=== PATIENT | female | born 1965 | race Caucasian/White ===

== ENCOUNTER → 2016-06-21 | Outpatient (CLI) | payer MEDICARE, BC ==
[~2016-06-21] MED LIST: AMBIEN10 MG PO; BACLOFEN10 M1 PO; CYANOCOBAL1000 MCG/1 IM; DULCOLAX100 MG PO; MELATONIN3 M1 PO; PERCOCET 7.5/321 TA1 PO; PRAVASTATIN20 MG PO; RESTORIL15 MG PO; ZANTAC150 MG PO
[2016-06-21 12:45] VITALS: BP 109/55
== END ==
LOC: AMSURD 12:15
DX: R07.9 Chest pain, unspecified (principal)

== ENCOUNTER → 2016-11-08 | Outpatient (CLI) | payer MEDICARE, BC ==
[2016-06-21 12:45] VITALS: BP 109/55
== END ==
LOC: RAD 12:00
DX: M54.16 Radiculopathy, lumbar region (principal); M54.14 Radiculopathy, thoracic region; M48.06 Spinal stenosis, lumbar region; M51.27 Other intervertebral disc displacement, lumbosacral region; M48.04 Spinal stenosis, thoracic region

== ENCOUNTER → 2016-11-10 | Outpatient (CLI) | payer MEDICARE, BC ==
[2016-06-21 12:45] VITALS: BP 109/55
== END ==
LOC: RAD 13:57
DX: R07.89 Other chest pain (principal); R22.2 Localized swelling, mass and lump, trunk

== ENCOUNTER → 2016-11-25 | Day surgery (SDC) | payer MEDICARE, BC ==
[2016-06-21 12:45] VITALS: BP 109/55
== END ==
LOC: MSO 13:03
DX: D13.2 Benign neoplasm of duodenum (principal); K21.0 Gastro-esophageal reflux disease with esophagitis; Z86.010 Personal history of colon polyps; G47.33 Obstructive sleep apnea (adult) (pediatric); R13.10 Dysphagia, unspecified
CPT/HCPCS: 00740; J7120

== ENCOUNTER → 2016-12-06 | Day surgery (SDC) | payer MEDICARE, BC ==
[2016-06-21 12:45] VITALS: BP 109/55
== END ==
LOC: MSO 07:06
DX: D17.1 Benign lipomatous neoplasm of skin and subcutaneous tissue of trunk (principal); G47.30 Sleep apnea, unspecified; M79.7 Fibromyalgia
CPT/HCPCS: A4649; J2405; J2550; J3010; J7120

== ENCOUNTER → 2016-12-20 | Outpatient (CLI) | payer MEDICARE, BC ==
[2016-06-21 12:45] VITALS: BP 109/55
== END ==
LOC: LAB 11:41
DX: R21 Rash and other nonspecific skin eruption (principal); A69.20 Lyme disease, unspecified

== ENCOUNTER → 2017-02-08 | Outpatient (CLI) | payer MEDICARE, BC ==
[2016-06-21 12:45] VITALS: BP 109/55
== END ==
LOC: LAB 15:12
DX: R51 Headache (principal); M43.6 Torticollis

== ENCOUNTER 2017-04-01 21:13 | Emergency (ER) | payer MEDICARE, BC ==
[~2017-04-01] VITALS: Ht 172.7 cm; Wt 84.6 kg
[2017-04-01] MEDS ORDERED: OMEPRAZOLE D/R20 MG PO (21:24)
[2017-04-01 23:01] LABS: CARBOXYHEMOGLOBIN (COHb) 0.5 %
[2017-04-01 23:33] VITALS: BP 120/78
== END 2017-04-01 23:28 | disposition home or self-care (01) ==
LOC: ED 21:13
PROVIDERS: Family Medicine
DX: T59.7X1A Toxic effect of carbon dioxide, accidental (unintentional), initial encounter (principal); R51 Headache; Y92.009 Unspecified place in unspecified non-institutional (private) residence as the place of occurrence of the external cause

== ENCOUNTER → 2018-03-13 | Outpatient (CLI) | payer MEDICARE, BC ==
[~2018-03-13] MED LIST changes: +OMEPRAZOLE D/R20 MG PO
[2018-03-13 09:39] LABS: EOS # 0.1 (0.04-0.40); EOS % 2.7 % (1.0-5.0); HEMATOCRIT 41.4 % (37.0-47.0); HEMOGLOBIN 13.5 g/dL (12.5-16.0); LYMPH# 2.4 (1.50-4.00); MEAN CELL VOLUME 88 fl (78-100); MEAN CORPUSCULAR HEMOGLOBIN 29 pg (27-31); MEAN CORPUSCULAR HGB CONC 33 g/dL (33-37); MEAN PLATELET VOLUME 9.6 fl (7.4-10.4); MONO # 0.3 (0.20-0.80); PLATELET COUNT 358 K/mm3 (130-400); RED BLOOD COUNT 4.69 M/mm3 (4.10-5.30); RED CELL DISTRIBUTION WIDTH 13.1 % (11.5-14.5); WHITE BLOOD COUNT 4.9 K/mm3 (4.8-10.8)
[2018-03-13 09:54] LABS: CALCIUM 9.3 mg/dL (8.4-10.2); POTASSIUM 4.3 mmol/L (3.6-5.0); TOTAL BILIRUBIN 0.9 mg/dL (0.2-1.3); TOTAL PROTEIN 6.9 g/dL (6.3-8.2)
[2018-03-13 11:50] LABS: ERYTHROCYTE SEDIMENTATION RATE 7 mm/hr (0-30)
== END ==
LOC: LAB 09:28
PROVIDERS: Internal Medicine
DX: E78.5 Hyperlipidemia, unspecified (principal); E53.8 Deficiency of other specified B group vitamins; K90.9 Intestinal malabsorption, unspecified; R20.2 Paresthesia of skin

== ENCOUNTER → 2018-03-15 | Outpatient (CLI) | payer MEDICARE, BC | LOC: MAMMO 13:37 | DX: Z12.31 Encounter for screening mammogram for malignant neoplasm of breast (principal) ==

== ENCOUNTER → 2018-06-02 | Outpatient (CLI) | payer MEDICARE, BC ==
[2018-06-02 08:58] LABS: ALBUMIN 3.9 g/dL (3.5-5.0); DIRECT BILIRUBIN 0.5 mg/dL (0.0-0.4); TOTAL PROTEIN 6.7 g/dL (6.3-8.2)
[2018-06-03 01:25] LABS: T3 TOTAL 82 ng/dL (87-178)
== END ==
LOC: LAB 08:24
PROVIDERS: Internal Medicine
DX: R94.6 Abnormal results of thyroid function studies (principal); E78.5 Hyperlipidemia, unspecified

== ENCOUNTER → 2018-10-09 | Outpatient (CLI) | payer MEDICARE, BC ==
[2018-06-13 16:50] VITALS: BP 129/80
[~2018-10-09] MED LIST changes: +NORCO 325 MG-51 TA1 PO
== END ==
LOC: RAD 15:09
DX: S43.51XA Sprain of right acromioclavicular joint, initial encounter (principal)

== ENCOUNTER → 2019-04-16 | Outpatient (CLI) | payer MEDICARE, BC ==
[2018-06-13 16:50] VITALS: BP 129/80
[2019-04-16 11:54] LABS: EOS # 0.1 (0.04-0.40); EOS % 1.5 % (1.0-5.0); HEMATOCRIT 43.3 % (37.0-47.0); HEMOGLOBIN 14.2 g/dL (12.5-16.0); LYMPH# 2.1 (1.50-4.00); MEAN CELL VOLUME 90 fl (78-100); MEAN CORPUSCULAR HEMOGLOBIN 29 pg (27-31); MEAN CORPUSCULAR HGB CONC 33 g/dL (33-37); MEAN PLATELET VOLUME 9.4 fl (7.4-10.4); MONO # 0.4 (0.20-0.80); NEU # 4.5 (1.40-6.50); PLATELET COUNT 374 K/mm3 (130-400); RED BLOOD COUNT 4.84 M/mm3 (4.10-5.30); RED CELL DISTRIBUTION WIDTH 12.9 % (11.5-14.5); WHITE BLOOD COUNT 7.2 K/mm3 (4.8-10.8)
[2019-04-16 12:14] LABS: ALBUMIN 4.2 g/dL (3.5-5.0); POTASSIUM 4.3 mmol/L (3.5-5.1)
[2019-04-16 12:15] LABS: CALCIUM 9.7 mg/dL (8.3-10.5)
[2019-04-16 12:17] LABS: TOTAL PROTEIN 7.5 g/dL (6.4-8.3)
[2019-04-16 12:19] LABS: TOTAL BILIRUBIN 0.5 mg/dL (0.2-1.2)
== END ==
LOC: LAB 11:41
PROVIDERS: Internal Medicine
DX: E78.5 Hyperlipidemia, unspecified (principal); E53.8 Deficiency of other specified B group vitamins; K90.9 Intestinal malabsorption, unspecified; R20.2 Paresthesia of skin

== ENCOUNTER → 2019-07-23 | Outpatient (CLI) | payer MEDICARE, BC ==
[2018-06-13 16:50] VITALS: BP 129/80
== END ==
LOC: LAB 16:48
DX: E78.5 Hyperlipidemia, unspecified (principal); E53.8 Deficiency of other specified B group vitamins; R20.2 Paresthesia of skin

== ENCOUNTER → 2019-11-12 | Outpatient (CLI) | payer MEDICARE, BC ==
[2018-06-13 16:50] VITALS: BP 129/80
[2019-11-12 08:53] LABS: EOS # 0.1 (0.04-0.40); EOS % 1.8 % (1.0-5.0); HEMOGLOBIN 13.6 g/dL (12.5-16.0); LYMPH# 2.7 (1.50-4.00); MEAN CELL VOLUME 88 fl (78-100); MEAN CORPUSCULAR HEMOGLOBIN 29 pg (27-31); MEAN CORPUSCULAR HGB CONC 33 g/dL (33-37); MEAN PLATELET VOLUME 9.4 fl (7.4-10.4); MONO # 0.5 (0.20-0.80); NEU # 2.7 (1.40-6.50); PLATELET COUNT 417 K/mm3 (130-400); RED BLOOD COUNT 4.64 M/mm3 (4.10-5.30); RED CELL DISTRIBUTION WIDTH 13.3 % (11.5-14.5); WHITE BLOOD COUNT 6.1 K/mm3 (4.8-10.8)
[2019-11-12 09:12] LABS: POTASSIUM 4.2 mmol/L (3.5-5.1)
[2019-11-12 09:13] LABS: ALBUMIN 4.3 g/dL (3.5-5.0)
[2019-11-12 09:14] LABS: CALCIUM 10.3 mg/dL (8.3-10.5)
[2019-11-12 09:15] LABS: TOTAL PROTEIN 7.5 g/dL (6.4-8.3)
[2019-11-12 09:17] LABS: TOTAL BILIRUBIN 0.7 mg/dL (0.2-1.2)
[2019-11-12 09:38] LABS: URINE APPEARANCE CLEAR; URINE BILIRUBIN NEGATIVE (NEGATIVE); URINE BLOOD NEGATIVE (NEGATIVE); URINE COLOR YELLOW; URINE GLUCOSE NEGATIVE (NEGATIVE); URINE KETONE NEGATIVE (NEGATIVE); URINE LEUKOCYTE ESTERASE NEGATIVE (NEGATIVE); URINE NITRATE NEGATIVE (NEGATIVE); URINE PROTEIN(semi-quant) NEGATIVE (NEGATIVE); URINE UROBILINOGEN NORMAL (NORMAL)
[2019-11-12 10:17] LABS: D-DIMER 0.3 mg/L FEU (0.15-0.50)
[2019-11-12 10:18] LABS: ERYTHROCYTE SEDIMENTATION RATE 6 mm/hr (0-30)
== END ==
LOC: LAB 08:40
PROVIDERS: Internal Medicine
DX: R06.02 Shortness of breath (principal)

== ENCOUNTER → 2020-11-18 | Outpatient (CLI) | payer MEDICARE, BC ==
[2020-11-18 16:37] LABS: BASO # 0.03 (0.02-0.10); EOS % 1.6 % (1.0-5.0); HEMATOCRIT 40.8 % (37.0-47.0); HEMOGLOBIN 13.3 g/dL (12.5-16.0); LYMPH# 2.79 (1.50-4.00); MEAN CELL VOLUME 91 fl (78-100); MEAN CORPUSCULAR HEMOGLOBIN 30 pg (27-31); MEAN CORPUSCULAR HGB CONC 33 g/dL (33-37); MEAN PLATELET VOLUME 8.9 fl (7.4-10.4); MONO # 0.36 (0.20-0.80); NEU # 2.95 (1.40-6.50); PLATELET COUNT 390 K/mm3 (130-400); RED BLOOD COUNT 4.48 M/mm3 (4.10-5.30); RED CELL DISTRIBUTION WIDTH 12.9 % (11.5-14.5); WHITE BLOOD COUNT 6.2 K/mm3 (4.8-10.8)
[2020-11-18 16:44] LABS: POTASSIUM 4.2 mmol/L (3.5-5.1)
[2020-11-18 16:45] LABS: ALBUMIN 3.9 g/dL (3.5-5.0)
[2020-11-18 16:48] LABS: CALCIUM 9.2 mg/dL (8.3-10.5)
[2020-11-18 16:49] LABS: TOTAL BILIRUBIN 0.6 mg/dL (0.2-1.2)
[2020-11-18 17:53] LABS: ERYTHROCYTE SEDIMENTATION RATE 12 mm/hr (0-30)
== END ==
LOC: LAB 16:25
PROVIDERS: Internal Medicine
DX: Z00.00 Encounter for general adult medical examination without abnormal findings (principal); Z20.822 Contact with and (suspected) exposure to COVID-19

== ENCOUNTER → 2020-12-04 | Outpatient (CLI) | payer MEDICARE, BC | LOC: LAB 17:48 | DX: R79.89 Other specified abnormal findings of blood chemistry (principal) ==

== ENCOUNTER → 2024-06-01 | Outpatient (CLI) | payer MEDICARE, BC ==
[2024-06-01 15:40] LABS: ALBUMIN 4.1 g/dL (3.5-5.0)
[2024-06-01 15:41] LABS: CALCIUM 9.7 mg/dL (8.3-10.5)
[2024-06-01 15:42] LABS: TOTAL PROTEIN 7.4 g/dL (6.4-8.3)
[2024-06-01 15:44] LABS: TOTAL BILIRUBIN 0.4 mg/dL (0.2-1.2)
[2024-06-01 15:45] LABS: BASO # 0.02 K/mm3 (0.02-0.10); EOS % 1.6 % (1.0-5.0); HEMATOCRIT 41.9 % (37.0-47.0); HEMOGLOBIN 13.3 g/dL (12.5-16.0); MEAN CELL VOLUME 89 fl (78-100); MEAN CORPUSCULAR HEMOGLOBIN 28 pg (27-31); MEAN CORPUSCULAR HGB CONC 32 g/dL (33-37); MONO # 0.34 K/mm3 (0.20-0.80); NEU # 3.08 K/mm3 (1.40-6.50); PLATELET COUNT 535 K/mm3 (130-400); RED BLOOD COUNT 4.69 M/mm3 (4.10-5.30); RED CELL DISTRIBUTION WIDTH 12.7 % (11.5-14.5); WHITE BLOOD COUNT 6.2 K/mm3 (4.8-10.8)
[2024-06-01 15:49] LABS: MAGNESIUM 2.21 mg/dL (1.60-2.60)
== END ==
LOC: LAB 15:12
PROVIDERS: Internal Medicine
DX: Z12.31 Encounter for screening mammogram for malignant neoplasm of breast (principal); Z12.11 Encounter for screening for malignant neoplasm of colon; R41.3 Other amnesia; E78.2 Mixed hyperlipidemia; K90.9 Intestinal malabsorption, unspecified